=== PATIENT | female | born 1995 | race Two or more races ===

== ENCOUNTER 2019-01-05 08:23 | Day surgery (SDC) | payer OTHER ==
[2019-01-03 14:11] VITALS: BMI 25.5
[2019-01-05 09:01] LABS: EPI CELLS 16.9 /HPF (0-5); HCG,QUALITATIVE URINE Negative; PH,URINE 6.5 (5.0-8.0); URINE APPEARANCE CLOUDY; URINE BACTERIA 389.4 /hpf (NEGATIVE); URINE BILIRUBIN NEGATIVE (NEGATIVE); URINE CASTS 4 /hpf (0-8); URINE COLOR YELLOW; URINE GLUCOSE (UA) NEGATIVE (NEGATIVE); URINE KETONE NEGATIVE (NEGATIVE); URINE LEUK ESTERASE TRACE (NEGATIVE); URINE NITRITE NEGATIVE (NEGATIVE); URINE PROTEIN TRACE (NEGATIVE); URINE RBC 2 /hpf (0-4); URINE UROBILINOGEN 0.2 mg/dL (0.2-1.0); URINE WBC 9 /hpf (0-5)
[2019-01-05] MEDS ORDERED: ROPIVACAINE HCL 0.5% 30ML VIAL ONE (09:21)
[2019-01-05] MEDS ORDERED: MIDAZOLAM HCL 2 MG/2 ML SINGLE DOSE VIAL ONE ×2 (09:26)
--- NOTE | 2019-01-05 09:33 | HP ---
Satellite H - Chief Complaint Chief Complaint: left knee pain/instability - Past Medical History Allergies/Adverse Reactions: Allergies Allergy/AdvReac Type Severity Reaction Status Date / Time No Known Drug Allergies Allergy Verified 01/05/19 09:06 ...LMP: 12/24/18 - Current Medications Current Medications: Home Medications Medication Instructions Recorded Albuterol Sulfate Inhaler - 1 - 2 inh PO PRN PRN 01/03/19 [Ventolin HFA Inhaler -] Oxycodone HCl/Acetaminophen 1 - 2 tab PO Q6H #30 tab MDD 6 01/05/19 [Percocet 5-325 mg Tablet] Satellite Physical Exam - Physical Examination Vital Signs: Vital Signs Period Temp Pulse Resp BP Sys/Heath Pulse Ox Last 24 Hr 97.8 F 61 18 131/78 98 General Appearance: Well Nourished, Well Developed, Alert & Oriented x3 ENT: Clear Lung: Normal air movement Heart: Regular rate & rhythm Extremities: Other (left knee- + swelling, + ttp, decr rom, + mike, +ant draw , nvi MRI + acl rupture) Neurological: Intact, Alert, Oriented Satellite Impression/Plan - Impression/Plan Impression: left knee internal derangement Operative Procedure: left knee arthroscopy with ACL reconstruction using BTB autograft Date to be Performed: 01/05/19
[2019-01-05] MEDS ORDERED: SODIUM CHLORIDE 0.9% P/F 10 ML VIAL IJ ONE (09:56)
[2019-01-05] MEDS ORDERED: LIDOCAINE HCL/PF 2% SDV 5ML VIAL ONE (09:56)
[2019-01-05] MEDS ORDERED: ceFAZolin SODIUM 1 GM VIAL ONE ×2 (09:56→13:27)
[2019-01-05] MEDS ORDERED: PROPOFOL 20 ML ONE (10:19)
[2019-01-05] MEDS ORDERED: ceFAZolin SODIUM 1 GM VIAL IVPB ONE ×2 (10:20→14:00)
[2019-01-05] MEDS ORDERED: KETAMINE HCL 200 MG/20 ML VIAL ONE (10:36)
[2019-01-05] MEDS ORDERED: CEFAZOLIN 1 GM/D5W 1 GM/50 ML BAG IVPB ONE (11:00)
--- NOTE | 2019-01-05 11:57 | OP ---
Operative Note - Note: Operative Date: 01/05/19 ([facility]) Pre-Operative Diagnosis: left knee acl rupture Operation: left knee arthroscopy with ACL reconstruction using BTB autograft Post-Operative Diagnosis: Same as Pre-op Surgeon: Christ Wade [employer] Specialist: Getachew Cavazos Anesthesiologist/PEST CONTROL SPECIALIST: Anson Coleman Anesthesia: General, Local Specimens Removed: shavings Estimated Blood Loss (mls): 0 (tourniquet) Operative Report Dictated: Yes
--- NOTE | 2019-01-05 13:03 | OP ---
DATE OF OPERATION: 01/05/2019 PREOPERATIVE DIAGNOSIS: Left anterior cruciate ligament tear. POSTOPERATIVE DIAGNOSIS: Left anterior cruciate ligament tear. PROCEDURE: Arthroscopy left knee with anterior cruciate ligament reconstruction with [id number]-[id number] autograft harvesting. SURGEON: Sagar Wade MD SHRIMP HEADER: KATLYN Galan. ANESTHESIA: Regional and general. CLOSURE: Ezao-jexoyhs-ewar autograft with Arthrex femoral button on the femoral side and a metallic interference screw on the tibia side, 2-0 Vicryl for peritenon and subcutaneous, and 3-0 Monocryl subcuticular with skin glue for skin. ESTIMATED BLOOD LOSS: Negligible. COMPLICATIONS: None. CONDITION: To recovery room in stable condition. DESCRIPTION OF OPERATIVE PROCEDURE: The patient was taken to the operating room on January 05, 2019. A regional and general anesthesia was administered by the anesthesiologist. IV Kefzol was administered prophylactically prior to the case. The lower extremity was prepped and draped in the usual sterile fashion. First the graft was harvested and a 6 cm lateral incision was centered at the patella tendon was incised. Hemostasis was achieved with Bovie cautery. Sharp dissection was carried down to the level of the tendon flaps medial and lateral from mid patella down to the tibia tubercle. The central 10 mm of the tendon were harvested using a 10-mm double-blade and 10 x 25 mm plugs were harvested from the patella and the tibial tubercle using an oscillating saw. Through each plug we drilled 2 holes to pass traction sutures. The patellar tendon was then closed using 0 Vicryl interrupted suture. The donor sites were filled with [place] putty at the end of the case. Next, the arthroscopic portion was performed. The superolateral portal was made with a 15 blade blunt trocar. The medial and lateral infrapatellar portals were then made through the previously made incision. The scope was placed in the lateral infrapatellar portal and up into the subcutaneous pouch. The pouch visualized to be clean. The medial and lateral gutters were visualized to be clean. The undersurface of the patella and trochlea were visualized to be intact with valgus stress on the knee. The medial compartment was entered. The medial meniscus was visualized and probed and found to be intact. The medial femoral condyle was found to be intact as was the medial tibial plateau. At 90 degrees the ACL was visualized to be completely torn and the stump was debrided using the shaver. In a [id number] position the lateral compartment as well as the lateral meniscus was found to have some fraying up to its mid portion but otherwise was intact and was left in situ. The lateral femoral condyle was probed and found to be intact as was the lateral tibial plateau. With the knee at 90 degrees a notchplasty was performed gaining sufficient width and height of the notch and removing all fibrous tissue. This exposed the appropriate position for the graft and the posterior aspect of the notch. Using the retro cutter a 9-1/2 mm tunnel was pulled just anterior to the PCL exciting the anteromedial proximal tibia of the appropiate length. All bone was removed. Using a Beath pin and with the knee flexed at 120 degrees, the pin was drilled through the cortex and exited the anterolateral distal thigh. A shuttle suture was placed through the Beath pin and was pulled to exit the anterolateral distal thigh as well. Prior to doing that the tunnel was drilled with a 9-1/2-mm flat reamer. The shuttle suture which was pulled off the anterolateral distal thigh was also pulled down the tibial tunnel and it was then used to shuttle the graft into the knee until the button engaged the anterolateral distal thigh cortex. Once the toggle sutures were used to toggle the graft into the femoral tunnel achieving excellent fixation. The knee was flexed 20 degrees and a posterior drawer was being applied and a 9 x 25-mm Arthrex bone and metal interference screw was placed between the tibial bone plug and the tibial tunnel achieving excellent fixation. The knee was taken through a range of motion and felt to have full extension and full flexion with excellent tracking and crossing of the ACL over the PCL with no impingement on the notch. The patient had a negative Yulissa, anterior drawer, and negative pivot shift. Direct visualization and probing of the graft revealed excellent tension in the graft. All sutures were removed. The portal was closed with 0 Vicryl, the peritenon was closed with 2-0 running suture, the subcutaneous tissue was closed with 2-0 Vicryl and 3-0 Monocryl subcuticular with skin glue closed the skin. A sterile pressure dressing was placed on the knee. The patient was awakened from Anesthesia and transferred to the recovery room in stable condition. No complications. Estimated blood loss negligible. The tourniquet which was inflated at the beginning of the case up to 275 mmHg was deflated at the end of this case which was approximately an hour later. SAGAR WADE M.D. [id number]
[2019-01-05] MEDS ORDERED: oxyCODONE HCL 5 MG TABLET PO ONE (14:08)
[2019-01-05] MEDS ORDERED: oxyCODONE HCL 5 MG TABLET ONE (14:13)
[2019-01-05] MEDS ORDERED: ONDANSETRON 4 MG/2 ML VIAL IVPUSH PRN (14:30)
[2019-01-05] MEDS ORDERED: LACTATED RINGERS SOLUTION 1,000 ML IV SCH (14:30)
[2019-01-05] MEDS ORDERED: oxyCODONE HCL 5 MG TABLET PO PRN ×2 (14:30)
[2019-01-05 15:39] VITALS: BP 125/72; PULSE 65; TEMP 98.5
== END 2019-01-05 15:20 | disposition home or self-care (01) ==
LOC: JASU-SURG 08:23
PROVIDERS: ATTEND Orthopaedic Surgery
PROC: 0QU Lower Bones, Supplement (ICD-10-PCS; 2019-01-05)
PROC: 0MSP4ZZ Reposition Left Knee Bursa and Ligament, Percutaneous Endoscopic Approach (ICD-10-PCS; principal; 2019-01-05 09:30)
DX: S83.512A Sprain of anterior cruciate ligament of left knee, initial encounter (principal); X58.XXXA Exposure to other specified factors, initial encounter; Y93.9 Activity, unspecified; Y92.9 Unspecified place or not applicable; Y99.9 Unspecified external cause status
CPT/HCPCS: 20900; 29888; C1713; 81003; 84703; 94760